=== PATIENT | female | born 1990 ===

== ENCOUNTER 2018-05-10 10:54 | Day surgery (SDC) | payer OTHER ==
[2018-05-10 11:22] VITALS: BMI 26.6
[2018-05-10] MEDS ORDERED: Lactated Ringer's 500 ML IV ONE (11:26)
[2018-05-10 11:35] VITALS: O2SAT 99
[2018-05-10] MEDS ORDERED: Propofol 10 mg/ml Inj (20 ML) ONE ×3 (13:04→13:47)
[2018-05-10] MEDS ORDERED: Midazolam 2 MG/2 ML VIAL ONE (13:46)
[2018-05-10 14:07] VITALS: TEMP 98
[2018-05-10 14:22] VITALS: BP 113/72; PULSE 83; RESP 20
== END 2018-05-10 14:26 | disposition home or self-care (01) ==
LOC: H.ENDO 10:54
PROVIDERS: ATTEND Internal Medicine Gastroenterology
DX: K64.0 First degree hemorrhoids (principal); R19.4 Change in bowel habit; R10.30 Lower abdominal pain, unspecified; E78.5 Hyperlipidemia, unspecified; I10 Essential (primary) hypertension; F32.9 Major depressive disorder, single episode, unspecified; D64.9 Anemia, unspecified
CPT/HCPCS: 45380; 88305; J2001; J2250; J2704; J7120